=== PATIENT | female | born 1985 | race Two or more races ===

== ENCOUNTER 2022-12-15 16:47 | Emergency (ER) | payer MEDICAID, OTHER ==
[~2022-12-15] VITALS: Ht 144.8 cm; Wt 50.1 kg
[2022-12-15] MEDS ORDERED: ALBUTEROL SULF 2.5 MG/0.5ML(0.5%) NEB SOLN NEB ONE (17:00)
[2022-12-15] MEDS ORDERED: IPRATROPIUM BROM 0.5 MG/2.5ML INH SOL NEB ONE (17:00)
[2022-12-15] MEDS ORDERED: DexAMETHasone SOD PHOS 10MG/1ML VIAL INJ IM ONE (17:15)
[2022-12-15] MEDS ORDERED: IPRATROPIUM BROM 0.5 MG/2.5ML INH SOL HHN ONE (17:15)
[2022-12-15] MEDS ORDERED: ALBUTEROL SULF 2.5 MG/0.5ML(0.5%) NEB SOLN HHN ONE (17:15)
[2022-12-15] MEDS ORDERED: ALBUAER3 IN (19:30)
[2022-12-15] MEDS ORDERED: METH4PAK PO (19:30)
[2022-12-15 19:49] VITALS: BP 116/67
== END 2022-12-15 20:00 | disposition home or self-care (01) ==
LOC: ER 16:47
DX: J45.901 Unspecified asthma with (acute) exacerbation (principal); Z77.22 Contact with and (suspected) exposure to environmental tobacco smoke (acute) (chronic)
CPT/HCPCS: 71046; 93005; 94640; 96372; 99283; J1100; J7644